=== PATIENT | female | born 1985 | race Caucasian/White ===

== ENCOUNTER 2021-07-06 10:58 | Outpatient (CLI) | payer OTHER | END 2021-07-06 10:59 | disposition home or self-care (01) | LOC: CSHRAD 10:58 | PROVIDERS: ATTEND Psychiatry & Neurology Neurology | DX: M54.16 Radiculopathy, lumbar region (principal); M43.17 Spondylolisthesis, lumbosacral region; Z98.1 Arthrodesis status | CPT/HCPCS: 72100 ==